=== PATIENT | female | born 1990 | race Caucasian/White ===

== ENCOUNTER 2016-09-10 00:20 | Observation (INO) | payer SELFPAY ==
[~2016-09-10] VITALS: Ht 167.6 cm; Wt 62.1 kg
[2016-09-10 02:21] LABS: Urine Bilirubin Negative (Negative); Urine Blood Negative /uL (Negative); Urine Color Yellow (Yellow); Urine Glucose Normal (Normal); Urine Ketone Negative (Negative); Urine Nitrite Negative (Negative); Urine RBC 2 /hpf (0 - 4); Urine Squamous Epithelial Cell FEW /hpf (<5)
[2016-09-10 02:22] LABS: Basophils # (auto) 0 uL; Basophils % (auto) 0.1 % (0.0-2.0); DEFINITIVE VIEW TRANSMISSION; Eosinophils # (auto) 0 uL; Eosinophils % (auto) 0.1 % (0.0-7.0); Hematocrit 23.4 % (36.0-46.0); Hemoglobin 7.6 g/dL (12.2-16.2); Lymphocytes % (auto) 7.3 % (10.0-50.0); Mean Corpuscular Hemoglobin 24.1 pg (28.0-32.0); Mean Corpuscular Hgb Conc. 32.4 g/dL (32.0-36.0); Mean Corpuscular Volume 74.4 fL (80.0-100.0); Mean Platelet Volume 8.2 fL (7.4-10.4); Monocytes # (auto) 0.9 uL; Monocytes % (auto) 6.2 % (0.0-12.0); Neutrophils # (auto) 12.5 uL; Neutrophils % (auto) 86.3 % (37.0-80.0); Platelet Count (auto) 251 10^3/uL (140-450); Red Cell Distribution Width 18.7 % (11.6-16.0); White Blood Cell 14.4 10^3/uL (4.4-10.8)
[2016-09-10 02:38] LABS: Partial Thromboplastin Time 27.3 sec (22.64-33.71)
[2016-09-10 02:42] LABS: Albumin 1.3 g/dL (3.4-5.0); Potassium 3.3 mmol/L (3.5-5.1)
[2016-09-10 02:45] LABS: Bilirubin, Total 0.6 mg/dL (0.2-1.0); Total Protein 5.3 g/dL (6.4-8.2)
[2016-09-10 02:48] LABS: INR 0.85 (0.9-1.15); Prothrombin Time 9.3 sec (9.37-12.3)
[2016-09-10] MEDS ORDERED: POTASSIUM CHL 20 Meq TABLET PO ONE (03:15)
== END 2016-09-10 04:55 | disposition home or self-care (01) | DRG 782 ==
LOC: LDRP 00:20
PROVIDERS: ADMIT Specialist; ATTEND Specialist
DX: O40.3XX0 Polyhydramnios, third trimester, not applicable or unspecified (principal); Z3A.37 37 weeks gestation of pregnancy
CPT/HCPCS: 36415; 76805; 76818; 80053; 80307; 81001; 85025; 85610; 85730; 86592; 86762; 86850; 86900; 86901; 87081; 87340; G0378

== ENCOUNTER 2018-09-02 14:55 | Inpatient (IN) | payer SELFPAY ==
[~2018-09-02] VITALS: Ht 1 cm; Wt 0.5 kg
[2018-09-02] MEDS ORDERED: LACTATED RINGER'S 1,000 ML IV SCH (15:23)
[2018-09-02] MEDS ORDERED: LACT. RINGERS/OXYTOCIN 20UNITS 1,000 ML IV SCH (15:26)
[2018-09-02] MEDS ORDERED: LACT. RINGERS/OXYTOCIN 20UNITS 1,000 ML IV ONE (15:28)
[2018-09-02] MEDS ORDERED: TERBUTALINE SULFATE 1 MG/ML 1ML VIAL SC ONE (15:30)
--- NOTE | 2018-09-02 15:40 | NUR ---
dr. white was called and informed him that the lyric writer of this note saw some membranes still hanging out in the perineum.
--- NOTE | 2018-09-02 16:00 | NUR ---
dr. white is at the bedside and checked on the perineum and the bleeding,stated perineum is intact.
--- NOTE | 2018-09-02 16:30 | NUR ---
Ambulation: Patient OOB with standby assistance by RN. Patient ambulated to bathroom with steady gait. Patient able to void without difficulty. Pericare teaching provided with returned demonstration by patient. Clean gown provided and bed linen changed. Patient ambulated back to bed with steady gait and no distress noted.
[2018-09-02 16:51] LABS: Basophils # (auto) 0 uL; Basophils % (auto) 0.4 % (0.0-2.0); Eosinophils # (auto) 0 uL; Eosinophils % (auto) 0.1 % (0.0-7.0); Hematocrit 25.3 % (36.0-46.0); Hemoglobin 7.9 g/dL (12.2-16.2); Lymphocytes # (auto) 1.8 uL; Lymphocytes % (auto) 14.6 % (10.0-50.0); Mean Corpuscular Hemoglobin 19.5 pg (28.0-32.0); Mean Corpuscular Volume 62.9 fL (80.0-100.0); Monocytes # (auto) 0.5 uL; Monocytes % (auto) 4.3 % (0.0-12.0); Neutrophils # (auto) 9.7 uL; Neutrophils % (auto) 80.6 % (37.0-80.0); Nucleated Red Blood Cells % 0.1 %; Platelet Count (auto) 262 10^3/uL (140-450); Red Blood Cells 4.03 10^6/uL (4.0-5.20); Red Cell Distribution Width 19.3 % (11.8-14.3)
[2018-09-02 16:59] LABS: Albumin 1.6 g/dL (3.4-5.0); Calcium 7.5 mg/dL (8.5-10.1); Potassium 3.7 mmol/L (3.5-5.1); Uric Acid 3.9 mg/dL (2.6-6.0)
[2018-09-02 17:01] LABS: BUN/Creatinine Ratio 12.3; Bilirubin, Total 0.5 mg/dL (0.2-1.0); Total Protein 5.9 g/dL (6.4-8.2)
[2018-09-02 17:09] LABS: Urine Bacteria FEW /hpf (None Seen); Urine Blood TRACE /uL (Negative); Urine Mucus FEW (None Seen); Urine Specific Gravity 1.018 (1.001-1.035); Urine WBC 25 /hpf (0 - 5)
[2018-09-02 17:10] LABS: INR 0.86 (0.9-1.15); Partial Thromboplastin Time 26.7 sec (23.64-32.05)
[2018-09-02 17:20] LABS: Alcohol, Urine < 3.0 mg/dL (0-5); Amphetamine Screen, Urine POSITIVE (NEGATIVE); Barbiturate Scree,Urine NEGATIVE (NEGATIVE); Benzodiazephine Screen, Urine NEGATIVE (NEGATIVE); Cannabinoid Screen, Urine NEGATIVE (NEGATIVE); Cocaine Screen, Urine NEGATIVE (NEGATIVE); Opiate Scree,Urine POSITIVE (NEGATIVE); Phencyclidine Screen, Urine NEGATIVE (NEGATIVE)
--- NOTE | 2018-09-02 17:47 | NUR ---
This RN sits at PT BS to discuss positive drug screen. Informed of POS drug screen for Opiates and Amphetamines. PT reports that she lives with people who use heroin and amphetamines, but that she does not use drugs. Reports that she does not have any open CPS cases. Informed PT of risks of heroin withdrawal for baby. PT continues to deny any heroin use herself.
--- NOTE | 2018-09-02 18:15 | NUR ---
Received report, assumed care.
--- NOTE | 2018-09-02 18:30 | NUR ---
Reviewed plan of care and discussed goals
[2018-09-02 19:00] VITALS: BP 115/68
--- NOTE | 2018-09-02 21:00 | NUR ---
2100: PT's sister Sharron Vazquez calls [facility] and asks to speak with the cook helper dessert. This RN attends to the phone call. Person on telephone, who says she is Sharron Vazquez proceeds to tell this RN that two years ago, Tiesha Vazquez, attempted to flee [facility] with her baby girl, Ruben Vazquez, and is afraid that she will attempt the same action/behavior with this current . Sharron gives this RN the following information: Ruben Vazquez : 09/12/16 (Daughter of Tiesha Vazquez) Foster Mother for Ruben Vazquez: Fartun Paulino [phone] (Who plans to adopt Baby Girl George born 09/02/18 so the siblings can remain together). 2310: Bere Nicolas, Social Service Practitioner from [facility] ([phone]) arrives to [facility] and given above information. Ms. Nicolas instructs [facility] Staff to call the Police and the CPS Hotline if PT. attempts to flee premises with Melvin. Ms. Nicolas verbalizes that CPS services will contact [facility] Staff tomorrow (09/03/18) with plan for Melvin (ie. warrant, placement of NB, etc.). 2330: Nicolas attempts to have a discussion with PT. who does not wake up for conversation. 2338: Nicolas departs [facility].
--- NOTE | 2018-09-02 21:00 | NUR ---
CARIE Galindo phoned in CPS report number [id number]. Copy placed in both pt and infant hard charts.
--- NOTE | 2018-09-02 23:15 | NUR ---
Bere Nicolas on unit and receiving report from [employer] Lucien Smiley RN.
[2018-09-02 23:30] VITALS: BP 106/63
--- NOTE | 2018-09-02 23:30 | NUR ---
Social Service Practitioner Bere Nicolas at bedside of pt
[2018-09-02 23:35] VITALS: BP 106/63
[2018-09-03 05:00] VITALS: BP 97/59
[2018-09-03 06:50] VITALS: BP 102/62
[2018-09-03] MEDS: IBUPROFEN 600 MG TAB PO PRN ×2 (10:04→15:11)
--- NOTE | 2018-09-03 11:00 | NUR ---
CALLED MANSI FROM [employer] REGARDING [employer] CONSULT, NO ANSWER, MESSAGE LEFT. AWAITING CALL BACK.
[2018-09-03 11:25] VITALS: BP 116/74
--- NOTE | 2018-09-03 12:00 | NUR ---
ABDI FROM NURSE PRACTITIONER PER [facility] IN [facility]URSERY REGARDING NURSE PRACTITIONER PER [facility]EM CONSULT. PER ABDI, SHE WILL GO SPEAK WITH THE PATIENT AND MAKE A CPS REPORT. WILL CONTINUE TO MONITOR.
[2018-09-03] MEDS ORDERED: PREN-96 PO (15:14)
[2018-09-03 15:15] VITALS: BP 102/66
--- NOTE | 2018-09-03 16:18 | NUR ---
[facility] NAKIA OLMSTEAD FROM [facility] ALONG WITH THE [employer] SERVED GROUP HOME WARRANT TO PATIENT. PER NAKIA SHE DOES NOT HAVE A COPY OF THE HOSPITAL HOLD LETTER BUT WILL FAX IT TODAY, FAX NUMBER [phone], AWAITING FAX. PER NAKIA OLMSTEAD [facility], THE FOSTER MOTHER PRISCILLA CHANDLER WILL BE COMING TO GET WHEN INFANT IS DISCHARGED, CONTACT NUMBER [phone]. WILL NOTIFY KELP GATHERER RN.
--- NOTE | 2018-09-03 16:54 | NUR ---
Received referral to see pt. Pt is a 28 yr old female who was admitted to the hospital in Labor. The Pt was positive for opiods and meth. Pt's daughter was also positive for meth. The baby was withdrawing. The mother states she has 3 other children who were taken by CPS. Their ages are 2, 5 and seven. They live in foster homes. The father of this is not involved with this child. The mother claims she lives with her mother. However again she states she does not reiceive any support from her. The pt is fully aware that this may be taken away from her and put in foster care. Spoke with Max Goodwin administrator social welfare at[facility] [phone] report number [id number].
--- NOTE | 2018-09-03 17:16 | NUR ---
PT REQUESTING TO LEAVE TO GO HOME, WILL NOTIFY DR. MOELLER.
--- NOTE | 2018-09-03 17:35 | NUR ---
CHARTED PTS [place] DEPRESSION SCALE. PT CALLED AND STATED SHE NEEDED TO CHANGE HER ANSWERS, AND THAT SHE READ THE QUESTIONS WRONG. PT GIVEN NEW FORM TO COMPLETE.
--- NOTE | 2018-09-03 17:36 | NUR ---
NOTIFIED DR. MOELLER, STATUS UPDATE GIVEN THAT PTS REQUESTING TO GO HOME. DR. MOELLER NOTIFIED THAT PT SCORED A 11 ON HER [place] DEPRESSION SCALE, PT RE-DID SCALE BECAUSE SHE NEEDED TO CHANGE HER ANSWERS. ORDERS RECEIVED FROM DR. MOELLER TO DISCHARGE PT HOME AND PT TO FOLLOW UP IN CLINIC IN 1 WEEK, CALL IN FERROUS SULFATE 325MG PO BID, #60 X 3 REFILLS, AND COLACE 100MG PO BID, #30, NO REFILLS. READ BACK AND VERIFIED ORDERS. WILL CARRY OUT.
--- NOTE | 2018-09-03 17:40 | NUR ---
PT LEFT OUTSIDE TO SMOKE WITH HER SISTER, AMA FORM SIGNED AND IN PT CHART. PT WAS AWARE SHE HAD TO COME BACK FOR HER DISCHARGE PAPERWORK AND AGREED TO COME BACK AFTER SMOKING. AWAITING RETURN.
[2018-09-03] MEDS ORDERED: FERROUS SULFATE 325 MG TAB PO SCH (18:00)
--- NOTE | 2018-09-03 18:20 | NUR ---
PT WENT OUTSIDE TO SMOKE WITH HER SISTER AT 1740, PT AWARE THAT SHE IS BEING DISCHARGED AND THAT HER DISCHARGE INSTRUCTIONS AND PAPERWORK NEED TO BE REVIEWED AND SIGNED BEFORE SHE GOES HOME. PT STATES THAT SHE IS GOING OUTSIDE TO SMOKE BUT WILL BE BACK TO GO OVER HER DISCHARGE INSTRUCTIONS. THIS RN WENT INTO ROOM 1 TO SEE IF PT RETURNED TO HER ROOM, PTS HAS NOT RETURNED TO ROOM 1, ROOM CHECKED, ALL OF PTS BELONGINGS ARE GONE. THIS RN CHECKED OUTSIDE AND CHECKED THE SMOKING AREA OUTSIDE AND PT IS NOT THERE. NOTIFIED COMPUTER PROGRAMMING SUPERVISORCARIE MOSER AND ENGRAVER LETTER ADRIANNA OF SITUATION AND THAT PT ELOPED.
--- NOTE | 2018-09-03 18:45 | NUR ---
CALLED CFS WORKER NAKIA RUIZ ABOUT PTS ELOPEMENT, NO ANSWER, LEFT MESSAGE.
[2018-09-04 16:06] LABS: RPR Non Reactive (Non Reactive); Rubella Antibodies, IgG <0.90 index (Immune >0.99)
== END 2018-09-03 17:40 | disposition home or self-care (01) | DRG 807 ==
LOC: OBSVTOIN 14:55 → LDRP 14:55
PROVIDERS: ADMIT Specialist; ATTEND Specialist
PROC: 10E0XZZ Delivery of Products of Conception, External Approach (ICD-10-PCS; principal; 2018-09-02)
DX: O77.0 Labor and delivery complicated by meconium in amniotic fluid (principal); Z37.0 Single live birth; Z3A.39 39 weeks gestation of pregnancy
CPT/HCPCS: 36415; 80053; 80307; 81001; 84550; 85025; 85384; 85610; 85730; 86592; 86762; 86850; 86900; 86901; 87340; 96365; G0378; J2590